=== PATIENT | male | born 1995 | race Caucasian/White ===

== ENCOUNTER 2018-10-21 01:57 | Observation (INO) | payer OTHER ==
[2018-10-21] MEDS ORDERED: NS 1,000 ML IV ONE ×2 (03:02→05:03)
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
[2018-10-21] MEDS ORDERED: PROPOFOL 200 MG/20 ML VIAL ONE (03:08)
[2018-10-21] MEDS ORDERED: PROPOFOL 200 MG/20 ML VIAL IVP ONE (03:20)
[2018-10-21] MEDS ORDERED: fentaNYL 100 MCG/2 ML INJ ONE (03:38)
[2018-10-21] MEDS ORDERED: TDAP ADULT 0.5 ML INJ (BOOSTRIX) IM ONE (03:39)
[2018-10-21] MEDS ORDERED: fentaNYL 100 MCG/2 ML INJ IVP ONE ×2 (03:41→03:44)
[2018-10-21 03:49] LABS: PLATELET COUNT 264 10^3/uL (150-400)
[2018-10-21] MEDS ORDERED: ceFAZolin 2 GM/DEXTROSE 100 ML IV ONE (05:03)
[2018-10-21] MEDS ORDERED: HYDROmorphONE/DILAUDID 2 MG/ML INJ IVP ONE (05:03)
[2018-10-21] MEDS ORDERED: ACETAMINOPHEN 325 MG TAB PO PRN (06:52)
[2018-10-21] MEDS ORDERED: ONDANSETRON 4 MG/2 ML VIAL IVP PRN (06:52)
[2018-10-21] MEDS ORDERED: LR 1,000 ML IV SCH (07:00)
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
[2018-10-21] MEDS ORDERED: ENOXAPARIN 30 MG/0.3 ML SYR SC SCH (09:00)
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
[2018-10-21] MEDS: oxyCODONE IR 5 MG TAB PO PRN ×3 (09:23→18:39)
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
[2018-10-21] MEDS: BACITRACIN ZINC 0.5 OZ OINTTUBE TP SCH ×3 (14:37→21:30)
[2018-10-21] MEDS: KETOROLAC 30 MG/1 ML SDV IVP PRN ×2 (14:45→21:28)
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
[2018-10-22] MEDS: oxyCODONE IR 5 MG TAB PO PRN ×4 (04:40→14:38)
[2018-10-22] MEDS: KETOROLAC 30 MG/1 ML SDV IVP PRN ×2 (05:12→11:33)
[2018-10-22] MEDS ORDERED: ENOXAPARIN 40 MG/0.4 ML SYR SC SCH (09:00)
[2018-10-22] MEDS: BACITRACIN ZINC 0.5 OZ OINTTUBE TP SCH (09:31)
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
[2018-10-22 15:58] VITALS: BP 116/76
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
== END 2018-10-22 17:07 | disposition home or self-care (01) ==
LOC: F3N 06:34
PROVIDERS: ADMIT Surgery; ATTEND Surgery
PROC: 0QSKXZZ Reposition Left Fibula, External Approach (ICD-10-PCS; principal; 2018-10-21)
PROC: 0CM Mouth and Throat, Reattachment (ICD-10-PCS; 2018-10-21)
PROC: 0CQ0XZZ Repair Upper Lip, External Approach (ICD-10-PCS; 2018-10-21)
DX: S82.842A Displaced bimalleolar fracture of left lower leg, initial encounter for closed fracture (principal); S93.05XA Dislocation of left ankle joint, initial encounter; S02.40DA Maxillary fracture, left side, initial encounter for closed fracture; S03.2XXA Dislocation of tooth, initial encounter; S01.511A Laceration without foreign body of lip, initial encounter; F10.920 Alcohol use, unspecified with intoxication, uncomplicated; E86.9 Volume depletion, unspecified; Y04.0XXA Assault by unarmed brawl or fight, initial encounter; Y92.59 Other trade areas as the place of occurrence of the external cause; Y90.6 Blood alcohol level of 120-199 mg/100 ml; Z23 Encounter for immunization
CPT/HCPCS: 12011; 27810; 41899; 70450; 70486; 71045; 72125; 73590; 73600; 92523; 97116; 97161; 97165; G0378; G0480; J0690; J1170; J1650; J1885; J2270; J2704; J3010